=== PATIENT | female | born 1965 | race Caucasian/White ===

== ENCOUNTER 2020-11-10 11:42 | Emergency (ER) | payer OTHER ==
[2020-11-10 12:08] VITALS: BP 128/85; PULSE 72; TEMP 98.1; BMI 35.9
== END 2020-11-10 12:30 | disposition home or self-care (01) ==
LOC: JER 11:42
DX: L56.2 Photocontact dermatitis [berloque dermatitis] (principal)
CPT/HCPCS: 99283-25